=== PATIENT | female | born 1970 | race Two or more races ===

== ENCOUNTER 2024-08-04 20:57 | Emergency (ER) | payer BC ==
[~2024-08-04] VITALS: Ht 157.5 cm; Wt 56.7 kg
[2024-08-04] MEDS ORDERED: NAPR-1192 PO (21:26)
[2024-08-04] MEDS ORDERED: KETOROLAC TROMETHAMINE 30 MG INJ ONE (21:34)
[2024-08-04] MEDS: KETOROLAC TROMETHAMINE 30 MG INJ IM ONE (21:48)
[2024-08-04 21:50] VITALS: BP 111/77; O2SAT 98
== END 2024-08-04 22:17 | disposition home or self-care (01) ==
LOC: ER 20:57
DX: S62.633A Displaced fracture of distal phalanx of left middle finger, initial encounter for closed fracture (principal); W20.8XXA Other cause of strike by thrown, projected or falling object, initial encounter; Y93.89 Activity, other specified; Y92.89 Other specified places as the place of occurrence of the external cause; Y99.8 Other external cause status; E03.9 Hypothyroidism, unspecified
CPT/HCPCS: 73140; A4606; A4663; J1885

== ENCOUNTER 2024-08-05 14:35 | Emergency (ER) | payer BC ==
[~2024-08-05] VITALS: Ht 157.5 cm; Wt 56.7 kg
[~2024-08-05 14:35] MED LIST: NAPR-1192 PO
[2024-08-05 15:53] VITALS: BP 104/57; O2SAT 99
== END 2024-08-05 15:54 | disposition home or self-care (01) ==
LOC: ER 14:35
DX: S62.603A Fracture of unspecified phalanx of left middle finger, initial encounter for closed fracture (principal); E03.9 Hypothyroidism, unspecified; X58.XXXA Exposure to other specified factors, initial encounter; Y93.89 Activity, other specified; Y92.89 Other specified places as the place of occurrence of the external cause; Y99.8 Other external cause status
CPT/HCPCS: A4606; A4663